=== PATIENT | female | born 1965 | race Caucasian/White ===

== ENCOUNTER 2021-02-19 19:06 | Emergency (ER) | payer SELFPAY ==
[~2021-02-19] VITALS: Ht 170.2 cm; Wt 95.7 kg
[2021-02-19 19:22] VITALS: BP 124/66
--- NOTE | 2021-02-19 19:23 | NUR ---
SEEN AND EXAMINED BY PA
[2021-02-19] MEDS ORDERED: KETOROLAC 30 MG/ML VIAL IM ONE (19:25)
--- NOTE | 2021-02-19 19:35 | NUR ---
SENT TO XRAY WITH TECH
--- NOTE | 2021-02-19 19:43 | NUR ---
55 YO F BIB SELF WITH C/C OF L WRIST ACHING PAIN 10/10 S/P FALL. PT STATES SHE TRIPPED OVER A CARPET AT HOME, DENIES HITTING HEAD AND OTHER INJURIES.PT IS UNABLE TO MOVE WRIST/HAND, COOL TO TOUCH, PAINFUL TO TOUCH. RADIAL PULSES PRESENT/BILAT. PT DENIES TAKING MEDS FOR PAIN. ALL NEEDS MET AT THIS TIME. BED LOCKED IN LOWEST POSITION, SIDE RAILS X1. HX: LIVER TRANSP, LUPUS, GBS, THYROIDECTOMY ALLERG: SEE ALLERGIES
--- NOTE | 2021-02-19 19:43 | NUR ---
BACK FROM XRAY.
[2021-02-19 20:27] VITALS: BP 124/66
--- NOTE | 2021-02-19 20:27 | NUR ---
Patient discharged with v/s stable. Written and verbal after care instructions given and explained. Patient verbalized understanding. Ambulatory with steady gait. All questions addressed prior to discharge. Advised to follow up with PMD.
== END 2021-02-19 20:27 | disposition home or self-care (01) ==
LOC: MED 19:06
DX: S63.592A Other specified sprain of left wrist, initial encounter (principal); Z88.6 Allergy status to analgesic agent; Z88.5 Allergy status to narcotic agent; Z88.8 Allergy status to other drugs, medicaments and biological substances; Z88.1 Allergy status to other antibiotic agents; W18.39XA Other fall on same level, initial encounter; Y93.89 Activity, other specified; Y92.89 Other specified places as the place of occurrence of the external cause; Y99.8 Other external cause status
CPT/HCPCS: 29125; 73110; 73130; 96372; 99284; J1885

== ENCOUNTER 2021-09-02 10:01 | Emergency (ER) | payer MEDICAID, OTHER ==
[~2021-09-02] VITALS: Ht 170.2 cm; Wt 95.7 kg
[2021-09-02 10:15] VITALS: BP 148/99
--- NOTE | 2021-09-02 10:29 | NUR ---
PT TAKEN TO XRAY VIA W/C
--- NOTE | 2021-09-02 10:45 | NUR ---
PT RETURNED TO LOBBY
[2021-09-02] MEDS ORDERED: TRAM50TA1 PO (11:17)
--- NOTE | 2021-09-02 11:23 | NUR ---
56 Y/O F C/O RT SIDED RIB PAIN SINCE YESTERDAY. FELL AND AND HIT RT SIDE ON BRICK WALL. 9/10 PAIN. PT HEARD "A CRACK" DENIES LOC. MEDHX: LIVER TRANSLPLANT, LUPUS, GBS SEE ALLEGRY
[2021-09-02] MEDS: KETOROLAC 30 MG/ML VIAL IM ONE (11:32)
[2021-09-02 11:46] VITALS: BP 148/99
== END 2021-09-02 11:46 | disposition home or self-care (01) ==
LOC: MED 10:01
DX: S20.211A Contusion of right front wall of thorax, initial encounter (principal); Z88.5 Allergy status to narcotic agent; Z88.8 Allergy status to other drugs, medicaments and biological substances; Z88.6 Allergy status to analgesic agent; Z88.1 Allergy status to other antibiotic agents; V98.8XXA Other specified transport accidents, initial encounter; Y93.89 Activity, other specified; Y92.89 Other specified places as the place of occurrence of the external cause; Y99.8 Other external cause status
CPT/HCPCS: 71101; 96372; 99283; J1885

== ENCOUNTER 2021-09-10 08:53 | Emergency (ER) | payer OTHER ==
[~2021-09-10] VITALS: Ht 170.2 cm; Wt 98.1 kg
[~2021-09-10 08:53] MED LIST: TRAM50TA1 PO
[2021-09-10 08:58] VITALS: BP 107/72
--- NOTE | 2021-09-10 09:10 | NUR ---
56 Y/O FEMALE AMBULATED TO BED 6, C/O R RIB PAIN AND SOB XYESTERDAY. PT SEEN HERE 09/02 FOR RIB CONTUSION AND NOW PAIN IS RADIATING TO NECK AND IS HARD TO BREATHE.DENIES ANY TRAUMA/INJURIES SINCE LAST VISIT PMH:LIVER TRANSPLANT, GBS, LUPUS, AORTIC VALVE REPLACEMENT ALLERGIES:SEE CHART
[2021-09-10] MEDS ORDERED: LIDOCAINE MPF 1% 10 MG/ML VIAL INJ ONE (09:30)
[2021-09-10] MEDS ORDERED: KETOROLAC 60 MG/2 ML VIAL IM ONE (10:55)
[2021-09-10] MEDS ORDERED: NAPR-1704 PO (11:54)
[2021-09-10 12:01] VITALS: BP 103/54
== END 2021-09-10 12:01 | disposition home or self-care (01) ==
LOC: MED 08:53
DX: S20.211A Contusion of right front wall of thorax, initial encounter (principal); W01.198A Fall on same level from slipping, tripping and stumbling with subsequent striking against other object, initial encounter; Y93.89 Activity, other specified; Y92.89 Other specified places as the place of occurrence of the external cause; Y99.8 Other external cause status; Z88.8 Allergy status to other drugs, medicaments and biological substances; Z88.1 Allergy status to other antibiotic agents; Z88.5 Allergy status to narcotic agent; Z88.6 Allergy status to analgesic agent
CPT/HCPCS: 96372; 99283; J1885; J2001; 99285

== ENCOUNTER 2024-02-29 16:48 | Emergency (ER) | payer OTHER ==
[~2024-02-29] VITALS: Ht 170.2 cm; Wt 90.3 kg
[~2024-02-29 16:48] MED LIST changes: +NAPR-1704 PO; +TRAM-748 PO; -TRAM50TA1 PO
[2024-02-29 17:09] VITALS: BP 107/73; PULSE 67; RESP 18; TEMP 98; O2SAT 7
[2024-02-29] MEDS ORDERED: KETOROLAC 30 MG/ML VIAL ONE (19:41)
[2024-02-29] MEDS: KETOROLAC 30 MG/ML VIAL IM ONE (20:01)
[2024-02-29] MEDS ORDERED: IBUP-2213 PO (20:14)
== END 2024-02-29 20:47 | disposition home or self-care (01) ==
LOC: MED 16:48
DX: M25.572 Pain in left ankle and joints of left foot (principal); M25.472 Effusion, left ankle; M79.662 Pain in left lower leg; E11.9 Type 2 diabetes mellitus without complications; Z94.4 Liver transplant status; Z79.899 Other long term (current) drug therapy; Z88.8 Allergy status to other drugs, medicaments and biological substances; Z88.6 Allergy status to analgesic agent; Z91.048 Other nonmedicinal substance allergy status; Z88.5 Allergy status to narcotic agent; Z88.1 Allergy status to other antibiotic agents
CPT/HCPCS: 73610; 93971; 96372; 99285; J1885